=== PATIENT | male | born 1985 | race Caucasian/White ===

== ENCOUNTER 2017-06-06 17:19 | Emergency (ER) | payer OTHER ==
[~2017-06-06] VITALS: Ht 175.3 cm; Wt 83.6 kg
[2017-06-06 17:33] VITALS: BP 138/86; PULSE 91; RESP 16; O2SAT 98
--- NOTE | 2017-06-06 18:02 | DRSVH ---
PROCEDURE: X-RAY RIGHT HAND, MINIMUM THREE VIEWS ([id number]) INDICATIONS: Foreign body TECHNIQUE: 3 views of the hand(s) acquired. COMPARISON: None. FINDINGS: Bones: No fractures or dislocations. Carpal bones are normally aligned. No suspicious bony lesions . Soft tissues: No suspicious soft tissue calcifications. No unexpected radiopaque foreign bodies. IMPRESSION: No unexpected radiopaque foreign bodies. Dictated by: Jessica Terry M.D. on 06/06/2017 at 17:59 Approved by: Jessica Terry M.D. on 06/06/2017 at 18:00
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
[2017-06-06] MEDS ORDERED: TdaP Vaccine 0.5 mL Inj IM ONE (19:35)
[2017-06-06] MEDS ORDERED: HYDROcodone-APAP 5-325 mg Tablet PO ONE (22:05)
[2017-06-06] MEDS ORDERED: HYDR-4003 PO (22:43)
[2017-06-06 22:45] VITALS: BP 149/85; PULSE 89; RESP 16; O2SAT 97
[2017-06-06 22:46] VITALS: BP 149/85; PULSE 89; RESP 16; O2SAT 97
[2017-06-07] MEDS ORDERED: _Cephalexin 500 mg Capsule PO SCH (08:30)
== END 2017-06-06 22:55 | disposition home or self-care (01) ==
LOC: SED 17:19
DX: S60.351A Superficial foreign body of right thumb, initial encounter (principal); V91.83XA Other injury due to other accident to other powered watercraft, initial encounter; Y93.89 Activity, other specified; Y99.8 Other external cause status; Y92.828 Other wilderness area as the place of occurrence of the external cause; Z23 Encounter for immunization
CPT/HCPCS: 10120; 73130; 90471; 90715; 96372; 99284; J1885